=== PATIENT | female | born 1970 | race Caucasian/White ===

== ENCOUNTER 2018-10-06 10:57 | Emergency (ER) | payer BC ==
--- NOTE | 2018-10-06 11:10 | Emergency Department Record ---
History of Present Illness - General Chief Complaint: Chest Pain Stated Complaint: HEART FEELS HEAVY Time Seen by Provider: 10/06/18 10:59 Source: Patient Mode of Arrival: Ambulatory Limitations: No limitations - History of Present Illness Initial Comments: 48 yo female presents with chest discomfort since Wednesday. The discomfort comes and goes. She reports the onset was soon after getting news about a friend's . The same day she developed cough that is mildly productive, sore throat and chills at times with subjective fever. The chest sensation is a transient heaviness that feels like she needs to take a full breath. No personal or family history of CAD or PE. No calf pain or swelling. She does smoke. She does not have elevated cholesterol, HTN, or DM. No syncope. MD Complaint: Chest pain, Other -: Days(s) (4) Onset: Other (after stressful news) Pain Location: Substernal Severity: Moderate Quality: Heaviness Consistency: Intermittent Improves With: Other (stress) Worsens With: Other Context: Other (stress) Other Symptoms: Cough, Fever, Other (sore throat) Treatments Prior to Arrival: None - Related Data Home Medications Medication Instructions Recorded Confirmed Last Taken Citalopram Hydrobromide [Celexa] 20 mg PO 10/06/18 10/05/18 Allergies Allergy/AdvReac Type Severity Reaction Status Date / Time No Known Drug Allergies Allergy Verified 10/06/18 11:11 Review of Systems Constitutional: Reports: Chills, Fever. Denies: Malaise, Weakness Eyes: Denies: Eye discharge, Eye pain, Photophobia ENT: Reports: Congestion, Throat pain Respiratory: Reports: Cough. Denies: Dyspnea, Hemoptysis Cardiovascular: Reports: Chest pain. Denies: Palpitations, Syncope Endocrine: Denies: Fatigue, Polydipsia, Polyuria Gastrointestinal: Denies: Abdominal pain, Diarrhea, Vomiting Genitourinary: Denies: Dysuria, Urgency Musculoskeletal: Denies: Arthralgia, Back pain, Joint swelling, Myalgia, Neck pain Skin: Denies: Bruising, Change in color, Rash Neurological: Denies: Confusion, Headache, Numbness, Tremors, Vertigo, Weakness Psychiatric: Reports: Anxiety Hematological/Lymphatic: Denies: Anemia, Blood Clots, Easy bleeding, Easy bruising, Swollen glands Physical Exam - General General Appearance: Alert, Oriented x3, Cooperative, No acute distress Limitations: No limitations - Head Head exam: Atraumatic, Normocephalic, Normal inspection - Eye Eye exam: Normal appearance, PERRL. negative: Conjunctival injection, Scleral icterus - ENT ENT exam: Normal exam, Mucous membranes dry. negative: Mucous membranes moist, TM's normal bilaterally Ear exam: Normal external inspection Nasal Exam: Normal inspection Mouth exam: Normal external inspection Teeth exam: Normal inspection Throat exam: Tonsillar erythema. negative: Normal inspection, Tonsillar exudate , R peritonsillar mass, L peritonsillar mass - Neck Neck exam: Normal inspection, Lymphadenopathy, Tenderness (anterior cervical). negative: Full ROM, Thyromegaly - Respiratory Respiratory exam: Normal lung sounds bilaterally. negative: Respiratory distress - Cardiovascular Cardiovascular Exam: Regular rate, Normal rhythm, Normal heart sounds Peripheral Pulses: 2+: Radial (R), Radial (L) - GI/Abdominal GI/Abdominal exam: Soft. negative: Tenderness - Rectal Rectal exam: Deferred - exam: Deferred - Extremities Extremities exam: Normal inspection. negative: Calf tenderness, Pedal edema, Tenderness - Back Back exam: Denies: CVA tenderness (R), CVA tenderness (L) - Neurological Neurological exam: Alert, Oriented X3 - Psychiatric Psychiatric exam: Normal affect, Normal mood. negative: Agitated, Anxious - Skin Skin exam: Dry, Intact, Normal color, Warm Course - Reevaluation(s) Reevaluation #1: 10/06/18 11:04 HEART Score is 2 (age 48, smoker). Lowest risk category. EKG 11:03 Rate 97 Rhythm sinus, Cyclone Normal, ST Normal. NO acute changes. artifact in V5-6 10/06/18 11:30 Repeat EKG due to artifact EKG#2 11:22 NSR rate 87, Rhythm sinus, Cyclone Normal, ST Normal. 10/06/18 11:47 10/06/18 11:48 D-dimer is negative Strep is negative 10/06/18 11:54 Influenza are negative 10/06/18 12:03 The BMP was negative for abnormalities The Troponin is normal 10/06/18 12:15 The results were discussed with the patient. She is low risk. I offered observation to see the cardiology PA today. She declined. She has a to attend. I believe her symptoms are atypical and she will be DC home with precautions, cardiology outpatient follow up and instructions for reasons to return. Medical Decision Making - Lab Data Result diagrams: 10/06/18 11:25 10/06/18 11:25 Disposition Disposition: Discharge Clinical Impression: Atypical chest pain, Bronchitis Disposition: Home, Self-Care Condition: (1) Good Instructions: Chest Pain (ED) Additional Instructions: Return if your have any worsening or constant pain You have been referred to the Specialty Cardiology Clinic here at [facility] for the symptoms you have been having Referrals: ALINE GUNN M.D. [MEDICAL DOCTOR] - [facility] Specialty Clinics [Provider Group] Forms: Patient Portal Access Time of Disposition: 12:15 Quality - Quality Measures Quality Measures: N/A - Blood Pressure Screening Does Patient Have Any of the Following: No Blood Pressure Classification: Pre-Hypertensive BP Reading Systolic Measurement: 136 Diastolic Measurement: 80 Screening for High Blood Pressure: < Pre-Hypertensive BP, F/U Documented > [ [id number]] Pre-Hypertensive Follow-up Interventions: Referral to alternative/primary care provider.
[2018-10-06 11:34] LABS: BASO % 0.1 % (0-6); EOS % 0.3 % (0-6); GRAN % 73.7 % (47-80); HEMATOCRIT 43.8 % (35.0-47.0); HEMOGLOBIN 14.5 gm/dl (11.6-16.0); LYMPH % 17.2 % (16-45); MEAN CELL VOLUME 95.8 fl (81-97); MEAN CORPUSCULAR HEMOGLOBIN 31.7 pg (27-33); MEAN CORPUSCULAR HGB CONC 33.1 g/dl (32-36); MEAN PLATELET VOLUME 9.3 fl (7.4-10.4); MONO % 8.7 % (0-9); PLATELET COUNT 282 K/uL (130-400); RED BLOOD COUNT 4.57 M/uL (3.80-5.40); RED CELL DISTRIBUTION WIDTH 13.3 % (11.5-14.5)
[2018-10-06 11:48] LABS: BLOOD UREA NITROGEN 6 mg/dL (6-20); CREATININE 0.8 mg/dL (0.5-0.9); EST GLOMERULAR FILTRATION RATE > 60 mL/min
[2018-10-06 11:51] LABS: GLUCOSE,RANDOM 107 mg/dL (74-109)
[2018-10-06 11:53] LABS: INFLUENZA A NEGATIVE (NEGATIVE); INFLUENZA B NEGATIVE (NEGATIVE)
--- NOTE | 2018-10-07 21:35 | RADIOLOGY REPORT ---
EXAM: CHEST 2 VIEWS HISTORY: MIDLINE CHEST PAIN AND PRESSURE. COUGH FOR FOUR DAYS. LOW-GRADE FEVER. TECHNIQUE: Upright PA and lateral views of the chest. COMPARISON: None. FINDINGS: The cardiomediastinal silhouette is normal in size and configuration. The pulmonary vasculature is nondilated. The lungs and pleural spaces are clear. No acute osseous abnormality identified. IMPRESSION: NEGATIVE CHEST. JOB NUMBER: [id number] MTDD
== END 2018-10-06 12:25 | disposition home or self-care (01) ==
LOC: ER 10:57
DX: R07.89 Other chest pain (principal); J20.9 Acute bronchitis, unspecified; J02.9 Acute pharyngitis, unspecified; F17.210 Nicotine dependence, cigarettes, uncomplicated
CPT/HCPCS: 71046; 80048; 84484; 85025; 85379; 87400; 87880; 93005; 93010; 99284